=== PATIENT | female | born 1945 | race Caucasian/White ===

== ENCOUNTER 2019-03-13 19:07 | Emergency (ER) | payer MEDICARE ==
[~2019-03-13] VITALS: Ht 162.6 cm; Wt 72.6 kg
--- OUTSIDE RECORDS SUMMARY | 2019-03-13 19:10 | XMS REPORT | Clinical Summary ---
Author Author NADJA angelcam Organization [facility] threadsy PeekYou [facility] Address Unknown Phone Unavailable Care Team Providers Care Application Technical Designer Name Role Phone Tabatha Echeverria MD PCP Allergies Comments Active Allergy Reactions Severity Noted Date Latex Hives, Rash Low 11/12/2016 Medications End Date Status Medication Sig Dispensed Refills Start Date Active apixaban (ELIQUIS) 5 mg Take 5 mg by 0 Tab tablet mouth 2 (two) times daily. Active flecainide (TAMBOCOR) 150 Take 150 mg 0 MG tablet by mouth 2 (two) times daily. Active metoprolol (TOPROL-XL) 50 Take 50 mg by 0 MG 24 hr tablet mouth daily. Active losartan (COZAAR) 25 MG Take 25 mg by 0 tablet mouth daily. Active glimepiride (AMARYL) 1 MG Take 1 mg by 0 tablet mouth every morning before breakfast. Active furosemide (LASIX) 40 MG Take 40 mg by 0 tablet mouth daily. Active potassium chloride SA Take 10 mEq 0 (K-DUR,KLOR-CON) 10 MEQ by mouth tablet daily. Active pravastatin (PRAVACHOL) Take 10 mg by 0 10 MG tablet mouth daily. Active montelukast (SINGULAIR) Take 10 mg by 0 10 mg tablet mouth nightly. Active fluticasone-salmeterol Inhale 1 puff 0 (ADVAIR) 500-50 mcg/dose by mouth via diskus inhaler inhaler 2 (two) times daily. Active tiotropium (SPIRIVA) 18 Inhale 18 mcg 0 mcg inhalation capsule by mouth via inhaler daily. Active ranitidine (ZANTAC) 150 Take 150 mg 0 MG tablet by mouth daily. Active lactobacillus rhamnosus, Take 1 0 GG, (CULTURELLE) 10 capsule by billion cell capsule mouth daily. Active glucosamine-chondroitin Take 1 tablet 0 500-400 mg tablet by mouth daily Move free . Active cholecalciferol, vitamin Take 1,000 0 D3, 1,000 unit capsule Units by mouth daily. Active albuterol HFA (VENTOLIN Inhale 1 puff 0 HFA) 90 mcg/actuation by mouth via inhaler inhaler every 6 (six) hours as needed for Wheezing. Active Problems Problem Noted Date Atrial fibrillation 11/19/2017 Social History Date Tobacco Use Types Packs/Day Years Used Never Smoker Smokeless Tobacco: Never Used Alcohol Use Drinks/Week oz/Week Comments Yes Sex Assigned at Date Recorded Not on file Industry Job Start Date Occupation Not on file Not on file Not on file Travel End Travel History Travel Start No recent travel history available. Last Filed Vital Signs Not on file Plan of Treatment Not on file Results Not on fileafter 03/12/2018 Insurance Payer Benefit Subscriber ID Type Phone Address Plan / Group [employer] xxxxxxxxxxx MEDICARE ADV Advance Directives For more information, please contact: [facility] [address] [place] [address] Date Inactivated Comments Code Status Date Activated 11/20/2017 1:46 PM Full Code 11/19/2017 8:10 AM This code status was determined by: Patient 11/19/2017 4:30 AM Full Code 11/18/2017 1:41 PM This code status was determined by: Patient
--- OUTSIDE RECORDS SUMMARY | 2019-03-13 19:10 | XMS REPORT ---
Author Author [facility] Address Unknown Phone Unavailable Care Team Providers Care Clinical Laboratory Director Name Role Phone GT JONES Unavailable Unavailable Problems This patient has no known problems. Allergies, Adverse Reactions, Alerts This patient has no known allergies or adverse reactions. Medications This patient has no known medications. Results Test Description Test Time Test Comments Text Results Atomic Results Result Comments POCT-ACT 2017-11-19 15:43:00 ACTIVATED CLOTTING TIME (BEAKER) (test evtj=357) 114 sec TESTED AT [place] [address] [id number] 14:37:00* Test Item Value Reference Range Comments ACTIVATED CLOTTING TIME (BEAKER) (test vltq=731) 312 sec TESTED AT [place] [address] [id number] 14:19:00* Test Item Value Reference Range Comments ACTIVATED CLOTTING TIME (BEAKER) (test yupj=777) 334 sec TESTED AT [place] [address] [id number] 14:19:00* Test Item Value Reference Range Comments ACTIVATED CLOTTING TIME (BEAKER) (test ewwr=099) 285 sec TESTED AT [place] [address] [id number] 14:19:00* Test Item Value Reference Range Comments ACTIVATED CLOTTING TIME (BEAKER) (test nxiw=784) 307 sec TESTED AT [place] [address] BASIC METABOLIC [id number] 12:09:00* Test Item Value Reference Range Comments SODIUM (BEAKER) (test zoui=701) 141 meq/L 136-145 POTASSIUM (BEAKER) (test rkzs=879) 4.2 meq/L 3.5-5.1 CHLORIDE (BEAKER) (test mymw=908) 103 meq/L 98-107 CO2 (BEAKER) (test icwu=309) 28 meq/L 22-29 BLOOD UREA NITROGEN (BEAKER) (test fgcv=628) 18 mg/dL 7-21 CREATININE (BEAKER) (test qzaa=007) 0.90 mg/dL 0.57-1.25 GLUCOSE RANDOM (BEAKER) (test iqlq=829) 151 mg/dL 70-105 CALCIUM (BEAKER) (test jfwo=514) 9.2 mg/dL 8.4-10.2 EGFR (BEAKER) (test ceoy=4877) 62 mL/min/1.73 sq m ESTIMATED GFR IS NOT ACCURATE CREATININE CLEARANCE IN PREDICTING GLOMERULAR FILTRATION RATE. ESTIMATED GFR IS NOT APPLICABLE FOR DIALYSIS PATIENTS. [id number] 12:09:00* Test Item Value Reference Range Comments MAGNESIUM (BEAKER) (test tcew=538) 1.5 mg/dL 1.6-2.6 PROTHROMBIN TIME/[id number] 09:08:00* Test Item Value Reference Range Comments PROTIME (BEAKER) (test vrjy=119) 13.8 seconds 11.7-14.7 INR (BEAKER) (test kuoi=649) 1.1 <=5.9 RECOMMENDED COUMADIN/WARFARIN INR THERAPY RANGESSTANDARD DOSE: 2.0 - 3.0 Inclu humza: PROPHYLAXIS for venous thrombosis, systemic embolization; TREATMENT for neela ous thrombosis and/or pulmonary embolus.HIGH RISK: Target INR is 2.5-3.5 for pat ients with mechanical heart valves.Within 24 hours, if on CoumadinCBC W/PLT COUNT & AUTO [id number] 08:50:00* Test Item Value Reference Range Comments WHITE BLOOD CELL COUNT (BEAKER) (test dvrq=172) 6.8 K/ L 3.5-10.5 RED BLOOD CELL COUNT (BEAKER) (test uufs=723) 4.16 M/ L 3.93-5.22 HEMOGLOBIN (BEAKER) (test uimb=474) 13.1 GM/DL 11.2-15.7 HEMATOCRIT (BEAKER) (test seij=385) 39.2 % 34.1-44.9 MEAN CORPUSCULAR VOLUME (BEAKER) (test fspf=584) 94.2 fL 79.4-94.8 MEAN CORPUSCULAR HEMOGLOBIN (BEAKER) (test vkrm=344) 31.5 pg 25.6-32.2 MEAN CORPUSCULAR HEMOGLOBIN CONC (BEAKER) (test epps=956) 33.4 GM/DL 32.2-35.5 RED CELL DISTRIBUTION WIDTH (BEAKER) (test vnqj=469) 12.3 % 11.7-14.4 PLATELET COUNT (BEAKER) (test jada=776) 208 K/CU MM 150-450 MEAN PLATELET VOLUME (BEAKER) (test fkbs=531) 11.2 fL 9.4-12.3 NUCLEATED RED BLOOD CELLS (BEAKER) (test eqlt=124) 0 /100 WBC 0-0 NEUTROPHILS RELATIVE PERCENT (BEAKER) (test parz=758) 66 % LYMPHOCYTES RELATIVE PERCENT (BEAKER) (test izsr=270) 23 % MONOCYTES RELATIVE PERCENT (BEAKER) (test ifuo=328) 8 % EOSINOPHILS RELATIVE PERCENT (BEAKER) (test vlyy=267) 3 % BASOPHILS RELATIVE PERCENT (BEAKER) (test sotp=353) 0 % NEUTROPHILS ABSOLUTE COUNT (BEAKER) (test blrk=673) 4.50 K/ L 1.56-6.13 LYMPHOCYTES ABSOLUTE COUNT (BEAKER) (test lnrr=894) 1.54 K/ L 1.18-3.74 MONOCYTES ABSOLUTE COUNT (BEAKER) (test zqpo=718) 0.53 K/ L 0.24-0.36 EOSINOPHILS ABSOLUTE COUNT (BEAKER) (test vjct=859) 0.21 K/ L 0.04-0.36 BASOPHILS ABSOLUTE COUNT (BEAKER) (test jahn=625) 0.03 K/ L 0.01-0.08 IMMATURE GRANULOCYTES-RELATIVE PERCENT (BEAKER) (test jlne=2325) 0 % 0-1 [id number] 13:13:00* Test Item Value Reference Range Comments SODIUM (BEAKER) (test jcjv=081) 140 meq/L 136-145 POTASSIUM (BEAKER) (test zyfj=998) 4.4 meq/L 3.5-5.1 CHLORIDE (BEAKER) (test cesy=199) 98 meq/L 98-107 CO2 (BEAKER) (test dkot=789) 32 meq/L 22-29 BUN AND [id number] 13:13:00* Test Item Value Reference Range Comments BLOOD UREA NITROGEN (BEAKER) (test waqf=563) 20 mg/dL 7-21 CREATININE (BEAKER) (test blqh=616) 1.12 mg/dL 0.57-1.25 EGFR (BEAKER) (test npow=8286) 48 mL/min/1.73 sq m ESTIMATED GFR IS NOT ACCURATE CREATININE CLEARANCE IN PREDICTING GLOMERULAR FILTRATION RATE. ESTIMATED GFR IS NOT APPLICABLE FOR DIALYSIS PATIENTS. [id number] 12:54:00* Test Item Value Reference Range Comments PARTIAL THROMBOPLASTIN TIME (BEAKER) (test shvf=036) 33.3 seconds 22.5-36.0 PROTHROMBIN TIME/[id number] 12:53:00* Test Item Value Reference Range Comments PROTIME (BEAKER) (test cnai=161) 15.6 seconds 11.7-14.7 INR (BEAKER) (test sexy=487) 1.2 <=5.9 RECOMMENDED COUMADIN/WARFARIN INR THERAPY RANGESSTANDARD DOSE: 2.0 - 3.0 Inclu humza: PROPHYLAXIS for venous thrombosis, systemic embolization; TREATMENT for neela ous thrombosis and/or pulmonary embolus.HIGH RISK: Target INR is 2.5-3.5 for pat ients with mechanical heart valves.CBC W/PLT COUNT & AUTO [id number] 12:46:00* Test Item Value Reference Range Comments WHITE BLOOD CELL COUNT (BEAKER) (test vwqz=904) 7.8 K/ L 3.5-10.5 RED BLOOD CELL COUNT (BEAKER) (test qbrj=771) 4.11 M/ L 3.93-5.22 HEMOGLOBIN (BEAKER) (test zind=228) 12.8 GM/DL 11.2-15.7 HEMATOCRIT (BEAKER) (test byqz=691) 39.5 % 34.1-44.9 MEAN CORPUSCULAR VOLUME (BEAKER) (test bbhv=294) 96.1 fL 79.4-94.8 MEAN CORPUSCULAR HEMOGLOBIN (BEAKER) (test cunr=001) 31.1 pg 25.6-32.2 MEAN CORPUSCULAR HEMOGLOBIN CONC (BEAKER) (test vbuo=884) 32.4 GM/DL 32.2-35.5 RED CELL DISTRIBUTION WIDTH (BEAKER) (test miez=835) 12.4 % 11.7-14.4 PLATELET COUNT (BEAKER) (test nptj=693) 207 K/CU MM 150-450 MEAN PLATELET VOLUME (BEAKER) (test uxrt=689) 11.1 fL 9.4-12.3 NUCLEATED RED BLOOD CELLS (BEAKER) (test rzzv=228) 0 /100 WBC 0-0 NEUTROPHILS RELATIVE PERCENT (BEAKER) (test jobf=885) 57 % LYMPHOCYTES RELATIVE PERCENT (BEAKER) (test eafz=533) 31 % MONOCYTES RELATIVE PERCENT (BEAKER) (test cqdl=111) 7 % EOSINOPHILS RELATIVE PERCENT (BEAKER) (test lmcz=952) 4 % BASOPHILS RELATIVE PERCENT (BEAKER) (test umrf=665) 1 % NEUTROPHILS ABSOLUTE COUNT (BEAKER) (test xabx=083) 4.49 K/ L 1.56-6.13 LYMPHOCYTES ABSOLUTE COUNT (BEAKER) (test zrim=038) 2.42 K/ L 1.18-3.74 MONOCYTES ABSOLUTE COUNT (BEAKER) (test ygzr=957) 0.57 K/ L 0.24-0.36 EOSINOPHILS ABSOLUTE COUNT (BEAKER) (test jgze=239) 0.29 K/ L 0.04-0.36 BASOPHILS ABSOLUTE COUNT (BEAKER) (test kixm=359) 0.05 K/ L 0.01-0.08 IMMATURE GRANULOCYTES-RELATIVE PERCENT (BEAKER) (test ytbh=1984) 0 % 0-1 CT, HEART, [id number] 17:17:00Reason for Exam:->SOBReason for Exam:->Afib Addendum BeginsREPORT STATUS:A Addendum: I agree with th e previously described non vascular findings. Signed: Kenneth Richards MDReport Verif ied Date/Time: 10/18/2017 17:17:38 Reading Location: [place] [id number] Angio Body Nessa jimmy RoomAddendum EndsFINAL REPORT CT angiography of the pulmonary veins, 18 October 2017 INDICATION: This is a 72 years old female with history of atrial fibrillation presented here for pulmonary vein ostial map ping. This study is performed in an attempt to avoid invasive procedure. TECHNIQ UE: Spiral acquisition during intravenous contrast administration using a [employer] PS multislice cardiac CT scanner without prospective ECG triggering. Multiplana r reconstructions were performed interactively by the interpreting physician raghav ng an independent ([employer]) workstation. Please refer to the contrast sheet scann ed in the [employer] system for the amount and route of contrast given. This exam was performed according to our departmental dose-optimisation programme, which inclu humza automated exposure control, adjustment of the mA and/or kV according to bea ent size and/or use of iterative reconstruction technique. Dose modulation, iter ative reconstruction, and/or weight based adjustment of the mA/kV was utilized t o reduce the radiation dose to as low as reasonably achievable. FINDINGS: VASCU LAR: The pericardium appears normal. The central pulmonary artery is at the upp er limits of normal in calibre. There is no evidence of central pulmonary artery embolism identified. The thoracic aorta is normal in course, calibre, and conto ur. Calcific and noncalcific atherosclerosis is seen in the descending thoracic aorta. No ectasia or aneurysmal dilation is seen. There is no evidence for acute aortic pathology. The arch vessel branching pattern is normal, and the origins of the arch branch vessels are all widely patent. The cardiac chambers demonstra te normal atrioventricular and ventriculoarterial concordance, and systemic and pulmonary venous return. The left ventricle is normal in size, and no abnormal m asses are identified. The coronary artery origins are normal. Scattered cross ry artery calcification is present for example in the LAD territory. Mild left a nd right atrial enlargement is seen. No thrombus is visualized in the left atria l appendage. Pulmonary vein morphology is normal with pairs of pulmonary veins o n each side of the left atrium. There is no evidence for pulmonary vein stenosis . Quantitative pulmonary vein ostial mapping (measured utilizing MPR analysis) i s as follows: Pulmonary vein Major axis Minor axis Cross-sectional ar ea Right upper 18 mm 17 mm 2.3 [id number] lower 19 mm 16 mm 2.2 ji0Wfcj upper 16 mm 12 mm 1.3 oz6Vxrl lower 17 mm 14 mm 1.8 cm2 NON-VASCULAR: The visualised thyroid gland appears unremar kable. The chest wall and mediastinum appears normal. No significant adenopathy is seen except for some small lymph nodes, considered nonspecific in nature. CT is not optimised in the assessment of breast structures. Surgical clips are seen in the left breast area indicating prior mastectomy. Correlate with clinical hi story. In the lung windows, no obvious endobronchial lesion is seen and no pleur al effusion is identified. In the lung windows, no obvious endobronchial lesion is seen and no pleural effusions identified. Some subsegmental atelectatic blankenship es are seen. Overall, no suspicious pulmonary nodule is identified. The limited images of the upper abdomen reveal no significant abnormalities of the visualise d organs. Precontrast images were not obtained and pulmonary vein study, however , Hounsfield units is low after contrast administration suggesting a degree of f atty infiltration. No acute bony pathology is seen. Some degenerative changes is noted. IMPRESSIONS: 1. The left atrium is enlarged. No thrombus is visualized in the left atrial appendage. 2. Pulmonary vein morphology is normal with pa irs of pulmonary veins bilaterally. There is no evidence for pulmonary vein miguel a nosis. Quantitative pulmonary vein ostial mapping is as noted above. 3. Normal thoracic aorta. Scattered calcific and noncalcific atherosclerosis is seen. 4. No acute pulmonary pathology. 5. Other findings as described above. Hepatic st eatosis. 6. An addendum will be dictated regarding the non-vascular findings by the Paint Preparer Radiologist. Signed: Tanner Andrewseport Verified Date/Rafa e: 10/18/2017 12:56:17 Reading Location: [place] [id number] Cardiology MRI Electr onically signed by: KENNETH RICHARDS M.D. on 10/18/2017 05:17 PM ELECTROLYTES 2017-10-18 10:17:00* Test Item Value Reference Range Comments SODIUM (BEAKER) (test krrg=776) 141 meq/L 136-145 POTASSIUM (BEAKER) (test otze=316) 4.3 meq/L 3.5-5.1 CHLORIDE (BEAKER) (test znkh=883) 100 meq/L 98-107 CO2 (BEAKER) (test lvre=312) 31 meq/L 22-29 BUN AND [id number] 10:17:00* Test Item Value Reference Range Comments BLOOD UREA NITROGEN (BEAKER) (test wdjz=143) 24 mg/dL 7-21 CREATININE (BEAKER) (test cwqd=864) 1.14 mg/dL 0.57-1.25 EGFR (BEAKER) (test vygi=3218) 47 mL/min/1.73 sq m ESTIMATED GFR IS NOT ACCURATE CREATININE CLEARANCE IN PREDICTING GLOMERULAR FILTRATION RATE. ESTIMATED GFR IS NOT APPLICABLE FOR DIALYSIS PATIENTS. PT/[id number] 10:04:00* Test Item Value Reference Range Comments PROTIME (BEAKER) (test jeah=392) 14.9 seconds 11.7-14.7 INR (BEAKER) (test htvw=631) 1.2 <=5.9 PARTIAL THROMBOPLASTIN TIME (BEAKER) (test tvnb=839) 31.5 seconds 22.5-36.0 RECOMMENDED COUMADIN/WARFARIN INR THERAPY RANGESSTANDARD DOSE: 2.0 - 3.0 Inclu humza: PROPHYLAXIS for venous thrombosis, systemic embolization; TREATMENT for neela ous thrombosis and/or pulmonary embolus.HIGH RISK: Target INR is 2.5-3.5 for pat ients with mechanical heart valves.PROTHROMBIN TIME/[id number] 10:03:00* Test Item Value Reference Range Comments PROTIME (BEAKER) (test pimy=027) 14.9 seconds 11.7-14.7 INR (BEAKER) (test royn=099) 1.2 <=5.9 RECOMMENDED COUMADIN/WARFARIN INR THERAPY RANGESSTANDARD DOSE: 2.0 - 3.0 Inclu humza: PROPHYLAXIS for venous thrombosis, systemic embolization; TREATMENT for neela ous thrombosis and/or pulmonary embolus.HIGH RISK: Target INR is 2.5-3.5 for pat ients with mechanical heart valves.CBC (HEMOGRAM ONLY)2017-10-18 09:56:00* Test Item Value Reference Range Comments WHITE BLOOD CELL COUNT (BEAKER) (test smfy=915) 12.5 K/ L 3.5-10.5 RED BLOOD CELL COUNT (BEAKER) (test dwln=913) 4.10 M/ L 3.93-5.22 HEMOGLOBIN (BEAKER) (test utnt=577) 12.7 GM/DL 11.2-15.7 HEMATOCRIT (BEAKER) (test isvs=973) 39.5 % 34.1-44.9 MEAN CORPUSCULAR VOLUME (BEAKER) (test tniv=978) 96.3 fL 79.4-94.8 MEAN CORPUSCULAR HEMOGLOBIN (BEAKER) (test ifyy=714) 31.0 pg 25.6-32.2 MEAN CORPUSCULAR HEMOGLOBIN CONC (BEAKER) (test psot=682) 32.2 GM/DL 32.2-35.5 RED CELL DISTRIBUTION WIDTH (BEAKER) (test egjt=082) 12.9 % 11.7-14.4 PLATELET COUNT (BEAKER) (test oyfo=327) 207 K/CU MM 150-450 MEAN PLATELET VOLUME (BEAKER) (test robz=811) 11.3 fL 9.4-12.3 NUCLEATED RED BLOOD CELLS (BEAKER) (test ddlm=024) 0 /100 WBC 0-0
[2019-03-13 20:32] LABS: STREPTOCOCCUS GRP A ANTIGEN NEGATIVE (NEGATIVE)
--- NOTE | 2019-03-13 20:38 | Diagnostic Imaging Report ---
EXAMINATION: CHEST 2 VIEWS INDICATION: ^COUGH, CONGESTION, SORE THROAT COMPARISON: None FINDINGS: AP view TUBES and LINES: None. LUNGS/PLEURA: The lungs are clear. No pleural effusion or pneumothorax. HEART AND MEDIASTINUM: The cardiomediastinal silhouette is unremarkable. BONES AND SOFT TISSUES: No acute osseous lesion. Surgical clips in the left axilla and overlying the left lung UPPER ABDOMEN: No free air under the diaphragm. IMPRESSION: No acute thoracic abnormality. Signed by: Pb Gimenez MD on 03/13/2019 8:35 PM
[2019-03-13 20:42] LABS: INFLUENZAE A&B ANTIGEN (RAPID) NEGATIVE (NEGATIVE)
[2019-03-13] MEDS ORDERED: CEFTRIAXONE SOD 1 GM VIAL IM ONE (22:15)
[2019-03-13] MEDS ORDERED: LIDOCAINE HCL 1% LOCAL INJ 20 ML VIAL INJ ONE (22:15)
[2019-03-13] MEDS ORDERED: PREDNISONE 20 MG TAB PO ONE (22:30)
== END 2019-03-13 22:45 | disposition home or self-care (01) ==
LOC: ER 19:07
DX: R05 Cough (principal); J20.9 Acute bronchitis, unspecified; J02.9 Acute pharyngitis, unspecified; J44.1 Chronic obstructive pulmonary disease with (acute) exacerbation; I10 Essential (primary) hypertension; I50.9 Heart failure, unspecified
CPT/HCPCS: 71046; 83518; 87070; 87400; 99284

== ENCOUNTER 2020-05-14 18:32 | Inpatient (IN) | payer MEDICARE, OTHER ==
[~2020-05-14] VITALS: Ht 162.6 cm; Wt 79.8 kg
--- NOTE | 2020-05-14 18:42 | Emergency Department Note ---
History of Present Illnes History of Present Illness Chief Complaint: Chest Pain History of Present Illness This is a 75 year old female with substernal CP which radiates to b/l Arms . (+) SOB. Neg N/V . Historian: Patient Arrival Mode: Car Kitchen And Bath Designer Required: No Onset (how long ago): hour(s) Location: substernal Radiation: Reports non-radiation Onset quality: sudden Duration (how long): hour(s) Timing of current episode: constant Progression: worsening Chronicity: new Relieving factors: none Exacerbating factors: none Associated symptoms: Reports chest pain, Reports shortness of breath Treatments prior to arrival: none Past Medical/Family History Physician Review I have reviewed the patient's past medical and family history. Any updates have been documented here. Past Medical History Recent Fever: No Clinical Suspicion of Infectio: No New/Unexplained Change in Ment: No Past Medical History: Hypertension, COPD, CHF, A-Fib Other Medical History: ABLATION Social History Smoking Cessation: Never Smoker Alcohol Use: None Any Illegal Drug Use: No Other Last Tetanus: UTD Review of Systems Review of Systems Constitutional: Reports no symptoms EENTM: Reports no symptoms Cardiovascular: Reports chest pain Respiratory: Reports dyspnea Gastrointestinal: Reports no symptoms Genitourinary: Reports no symptoms Musculoskeletal: Reports no symptoms Integumentary: Reports no symptoms Neurological: Reports no symptoms Psychological: Reports no symptoms Endocrine: Reports no symptoms Hematological/Lymphatic: Reports no symptoms Physical Exam Related Data Allergies: Coded Allergies: latex (Verified Allergy, Intermediate, 03/13/19) Triage Vital Signs Vital Signs Date Time Temp Pulse Resp B/P (MAP) Pulse Ox O2 Delivery O2 Flow Rate FiO2 05/14/20 18:35 98.1 65 20 152/61 98 Room Air 05/14/20 20:55 2.5 Vital signs reviewed: Yes Physical Exam CONSTITUTIONAL Constitutional: Present obese HENT HENT: Present normocephalic, Present atraumatic, Present oropharynx clear/moist, Present nose normal HENT L/R: Present left ext ear normal, Present right ext ear normal EYES Eyes: Reports PERRL, Reports conjunctivae normal NECK Neck: Present ROM normal PULMONARY Pulmonary: Present effort normal, Present breath sounds normal CARDIOVASCULAR Cardiovascular: Present LLE edema, Present RLE edema GASTROINTESTINAL Abdominal: Present soft, Present nontender, Present bowel sounds normal GENITOURINARY Genitourinary: Present exam deferred SKIN Skin: Present warm, Present dry MUSCULOSKELETAL Musculoskeletal: Present ROM normal NEUROLOGICAL Neurological: Present alert, Present oriented x 3, Present no gross motor or sensory deficits PSYCHOLOGICAL Psychological: Present mood/affect normal, Present judgement normal Results Laboratory Lab results reviewed: Yes Laboratory comments Laboratory Tests Test 05/14/20 18:45 White Blood Count 8.99 x10e3/uL (4.8-10.8) Red Blood Count 4.25 x10e6/uL (3.6-5.1) Hemoglobin 13.4 g/dL (12.0-16.0) Hematocrit 39.7 % (34.2-44.1) Mean Corpuscular Volume 93.4 fL (81-99) Mean Corpuscular Hemoglobin 31.5 pg (28-32) Mean Corpuscular Hemoglobin Concent 33.8 g/dL (31-35) Red Cell Distribution Width 12.7 % (11.7-14.4) Platelet Count 206 x10e3/uL (140-360) Neutrophils (%) (Auto) 48.6 % (38.7-80.0) Lymphocytes (%) (Auto) 38.8 % (18.0-39.1) Monocytes (%) (Auto) 9.6 % (4.4-11.3) Eosinophils (%) (Auto) 2.2 % (0.0-6.0) Basophils (%) (Auto) 0.6 % (0.0-1.0) Neutrophils # (Auto) 4.4 (2.1-6.9) Lymphocytes # (Auto) 3.5 (1.0-3.2) Monocytes # (Auto) 0.9 (0.2-0.8) Eosinophils # (Auto) 0.2 (0.0-0.4) Basophils # (Auto) 0.1 (0.0-0.1) Absolute Immature Granulocyte (auto 0.02 x10e3/uL (0-0.1) D-Dimer Quantitative (PE/DVT) < 100 ng/mL (0-400) Sodium Level 138 mmol/L (136-145) Potassium Level 4.2 mmol/L (3.5-5.1) Chloride Level 97 mmol/L (98-107) Carbon Dioxide Level 27 mmol/L (22-29) Anion Gap 18.2 mmol/L (8-16) Blood Urea Nitrogen 11 mg/dL (7-26) Creatinine 0.94 mg/dL (0.57-1.11) Estimat Glomerular Filtration Rate 58 ML/MIN (60-) BUN/Creatinine Ratio 12 (6-25) Glucose Level 129 mg/dL (74-118) Calcium Level 9.3 mg/dL (8.4-10.2) Total Bilirubin 0.5 mg/dL (0.2-1.2) Aspartate Amino Transf (AST/SGOT) 24 IU/L (5-34) Alanine Aminotransferase (ALT/SGPT) 29 IU/L (0-55) Alkaline Phosphatase 76 IU/L (40-150) Creatine Kinase 35 IU/L (29-168) Creatine Kinase MB 1.20 ng/mL (0-5.0) Troponin I 0.015 ng/mL (0-0.300) B-Type Natriuretic Peptide 135.6 pg/mL (0-100) Total Protein 7.1 g/dL (6.5-8.1) Albumin 3.9 g/dL (3.5-5.0) Globulin 3.2 g/dL (2.3-3.5) Albumin/Globulin Ratio 1.2 (0.8-2.0) Imaging Imaging results reviewed: Yes Impressions [place] [address] Patient Name: KELSEA WINSTON MR #: [id number] : 1945 Age/Sex: 75/F Req #: [id number] Adm Physician: Ordered by: RAQUEL BARDALES DO Report #: [id number] Location: ER Room/Bed: Procedure: [id number] DX/CHEST SINGLE (PORTABLE) Exam Date: 05/14/20 Exam Time: 1854 REPORT STATUS: Signed EXAMINATION: CHEST SINGLE (PORTABLE) INDICATION: Chest pain. COMPARISON: Chest x-ray on 03/13/2019. FINDINGS: TUBES and LINES: None. LUNGS: There is hazy opacification of bilateral lung bases and prominent interstitial lung markings. PLEURA: No pleural effusion or pneumothorax. HEART AND MEDIASTINUM: The heart is mildly enlarged. Mediastinal contours otherwise unchanged. BONES AND SOFT TISSUES: No acute osseous lesion. Soft tissues are unremarkable. UPPER ABDOMEN: No free air under the diaphragm. IMPRESSION: 1. Cardiomegaly with prominent interstitial lung markings which likely represents pulmonary edema. 2. Hazy opacification of the bilateral lung bases may represent atelectasis and/or pneumonia. Follow-up to resolution. Signed by: Baldo Mariano MD on 05/14/2020 8:30 PM Dictated By: BALDO MARIANO MD 29 Transcribed By: TAN on 05/14/202029 COPY TO: RAQUEL BARDALES DO~ Procedures 12 Lead ECG Interpretation ECG Interpretation : ECG: ECG 1 Kitchen And Bath Designer: Interpreted by ED physician Date: May 14, 2020 Time: 18:41 Prior ECG tracings: reviewed Rhythm: sinus rhythm Rate: normal QRS axis: normal ST segments normal: Yes T waves normal: Yes Q waves: V1, V2 Assessment & Plan Medical Decision Making MDM 75 yof presents with CP. CMP, CBC, EKG, and cardiac enzymes ordered for consideration of ACS, PE, costocondritis, Chest wall pain, and pneumothorax considered. labs, imaging and EKG reviewed . Plan to admit for observation Assessment & Plan Final Impression: (1) Chest pain Depart Disposition: ADMITTED Home Meds Reported Medications Metoprolol Succinate (METOPROLOL SUCCINATE) 50 Mg Tab.er.24h, 1 TAB PO DAILY 05/14/20 Losartan Potassium (COZAAR) 25 Mg Tablet, 1 TAB PO DAILY 05/14/20 Furosemide (FUROSEMIDE) 40 Mg Tablet, 40 MG PO DAILY 05/14/20 Rosuvastatin Calcium (Rosuvastatin Calcium) 5 Mg Tablet, 5 MG PO HS 05/14/20 Apixaban (Eliquis) 5 Mg Tablet, 5 MG PO BID 05/14/20 RAQUEL BARDALES DO May 14, 2020 18:42
[2020-05-14] MEDS ORDERED: MORPHINE SULFATE INJ 4 MG/ML INJ 1ML IV STA ×2 (18:44→20:18)
[2020-05-14] MEDS ORDERED: ASPIRIN 81 MG CHEW TAB PO ONE ×2 (18:45→20:30)
[2020-05-14] MEDS ORDERED: ONDANSETRON HCL INJ 2MG/ML 2ML 2 MG/ML VIAL IV STA ×2 (19:02→20:18)
[2020-05-14 19:08] LABS: BASOPHILS # (AUTO) 0.1 (0.0-0.1); BASOPHILS % 0.6 % (0.0-1.0); EOSINOPHILS # (AUTO) 0.2 (0.0-0.4); EOSINOPHILS % 2.2 % (0.0-6.0); HEMATOCRIT 39.7 % (34.2-44.1); HEMOGLOBIN 13.4 g/dL (12.0-16.0); LYMPHOCYTES # (AUTO) 3.5 (1.0-3.2); LYMPHOCYTES % 38.8 % (18.0-39.1); MEAN CORPUSCULAR HEMOGLOBIN 31.5 pg (28-32); MEAN CORPUSCULAR HGB CONC 33.8 g/dL (31-35); MEAN CORPUSCULAR VOLUME 93.4 fL (81-99); MONOCYTES # (AUTO) 0.9 (0.2-0.8); MONOCYTES % 9.6 % (4.4-11.3); NEUTROPHILS # (AUTO) 4.4 (2.1-6.9); NEUTROPHILS % 48.6 % (38.7-80.0); PLATELET COUNT 206 x10e3/uL (140-360); RED BLOOD COUNT 4.25 x10e6/uL (3.6-5.1); RED CELL DISTRIBUTION WIDTH 12.7 % (11.7-14.4)
[2020-05-14 19:25] LABS: ALBUMIN 3.9 g/dL (3.5-5.0); ALBUMIN/GLOBULIN RATIO 1.2 (0.8-2.0); ANION GAP 18.2 mmol/L (8-16); CALCIUM 9.3 mg/dL (8.4-10.2); CREATININE, SERUM 0.94 mg/dL (0.57-1.11); POTASSIUM 4.2 mmol/L (3.5-5.1)
[2020-05-14 19:32] LABS: CREATINE KINASE MB 1.2 ng/mL (0-5.0)
[2020-05-14] MEDS ORDERED: MORPHINE SULFATE INJ 4 MG/ML INJ 1ML ONE (20:27)
[2020-05-14] MEDS ORDERED: ONDANSETRON HCL INJ 2MG/ML 2ML 2 MG/ML VIAL ONE (20:27)
[2020-05-14] MEDS ORDERED: MORPHINE SULFATE 2 MG/ML SYR 1ML IV PRN (20:30)
--- NOTE | 2020-05-14 20:33 | Diagnostic Imaging Report ---
EXAMINATION: CHEST SINGLE (PORTABLE) INDICATION: Chest pain. COMPARISON: Chest x-ray on 03/13/2019. FINDINGS: TUBES and LINES: None. LUNGS: There is hazy opacification of bilateral lung bases and prominent interstitial lung markings. PLEURA: No pleural effusion or pneumothorax. HEART AND MEDIASTINUM: The heart is mildly enlarged. Mediastinal contours otherwise unchanged. BONES AND SOFT TISSUES: No acute osseous lesion. Soft tissues are unremarkable. UPPER ABDOMEN: No free air under the diaphragm. IMPRESSION: 1. Cardiomegaly with prominent interstitial lung markings which likely represents pulmonary edema. 2. Hazy opacification of the bilateral lung bases may represent atelectasis and/or pneumonia. Follow-up to resolution. Signed by: Jesus Ratliff MD on 05/14/2020 8:30 PM
[2020-05-14] MEDS ORDERED: ROSUVASTATIN CAL5 MG PO (20:59)
[2020-05-14] MEDS ORDERED: FUROSEMIDE40 MG PO (20:59)
[2020-05-14] MEDS ORDERED: ELIQUIS5 MG PO (20:59)
[2020-05-14] MEDS ORDERED: COZAAR25 MG PO (20:59)
[2020-05-14] MEDS ORDERED: METOPROLOL SUCC50 MG PO (20:59)
--- NOTE | 2020-05-14 23:30 | NUR ---
RECEIVED PATIENT FROM ED AT THIS TIME VIA WHEELCHAIR. PATIENT AMBULATED TO BED, STEADY GAIT NOTED. PATIENT REPORTS SOB WITH EXERTION, INCREASED OXYGEN, CALLED RT FOR EXTENSION TUBING. PATIENT IS A&OX3. L LIMB ALERT BAND ON, LATEX ALLERGY BAND APPLIED. R FA 20G ASYMPTOMATIC, INTACT, AND PATENT. CHEST PAIN 4/10 REPORTED. +2 PITTING EDEMA NOTED TO BLE. SKIN INTACT. TELE MONITOR #[id number] [address]. LUNG SOUNDS CLEAR. BOWEL SOUNDS ACTIVE. ORIENTED PATIENT TO ROOM AND PLAN OF CARE. ATTEMPTED TO TURN ON BED ALARM, BUT PATIENT REFUSES. WALKER PROVIDED AND PATIENT VERBALIZED SHE WOULD CALL IF SHE NEEDED ASSISTANCE GETTING OUT OF BED. NO CONCERNS EXPRESSED AT THIS TIME. BED LOCKED IN LOWEST POSITION, SIDE RAILS UPX2, CALL LIGHT IN REACH.
[2020-05-15] VITALS (10 sets, daily range): BP systolic 112–154; BP diastolic 51–122
[2020-05-15] MEDS: ONDANSETRON HCL INJ 2MG/ML 2ML 2 MG/ML VIAL IV PRN ×3 (00:55→16:52)
[2020-05-15] MEDS: MORPHINE SULFATE INJ 4 MG/ML INJ 1ML IV PRN ×3 (00:55→16:52)
[2020-05-15 03:36] LABS: BASOPHILS % 0.4 % (0.0-1.0); EOSINOPHILS # (AUTO) 0.1 (0.0-0.4); EOSINOPHILS % 0.8 % (0.0-6.0); HEMATOCRIT 40.2 % (34.2-44.1); HEMOGLOBIN 13.1 g/dL (12.0-16.0); LYMPHOCYTES # (AUTO) 1.8 (1.0-3.2); LYMPHOCYTES % 17.7 % (18.0-39.1); MEAN CORPUSCULAR HEMOGLOBIN 31.3 pg (28-32); MEAN CORPUSCULAR HGB CONC 32.6 g/dL (31-35); MEAN CORPUSCULAR VOLUME 95.9 fL (81-99); MONOCYTES # (AUTO) 0.7 (0.2-0.8); MONOCYTES % 6.3 % (4.4-11.3); NEUTROPHILS # (AUTO) 7.7 (2.1-6.9); NEUTROPHILS % 74.4 % (38.7-80.0); PLATELET COUNT 185 x10e3/uL (140-360); RED BLOOD COUNT 4.19 x10e6/uL (3.6-5.1); RED CELL DISTRIBUTION WIDTH 12.7 % (11.7-14.4)
[2020-05-15 03:58] LABS: CREATINE KINASE MB 4.6 ng/mL (0-5.0)
[2020-05-15 04:14] LABS: ALBUMIN 3.8 g/dL (3.5-5.0); ALBUMIN/GLOBULIN RATIO 1.2 (0.8-2.0); ANION GAP 13.3 mmol/L (8-16); CALCIUM 9.2 mg/dL (8.4-10.2); CREATININE, SERUM 1.35 mg/dL (0.57-1.11); POTASSIUM 5.3 mmol/L (3.5-5.1)
--- NOTE | 2020-05-15 06:25 | NUR ---
PAGED MD GODDARD CONCERNING CONSULT AT THIS TIME.
--- NOTE | 2020-05-15 07:00 | NUR ---
RCD PT AT BED PT IS ALERT AND ORIENTED PT RESTING ON BED IV PATENT BY SALINE FLUSH BED LOW AND LOCKED CALL LIGHT IN REACH
[2020-05-15] MEDS: ASPIRIN 81 MG CHEW TAB PO SCH (10:30)
[2020-05-15] MEDS: FUROSEMIDE INJ 10 MG/ML 4 ML VIAL IV SCH ×2 (10:35→16:52)
[2020-05-15] MEDS: ATORVASTATIN 40 MG TAB PO SCH (10:35)
[2020-05-15 11:40] LABS: CREATINE KINASE MB 5.8 ng/mL (0-5.0)
--- NOTE | 2020-05-15 13:13 | Consultation ---
DATE OF CONSULTATION: 05/15/2020 Cardiology Consultation REASON FOR CONSULTATION: Chest pain. CONSULTING PHYSICIAN: Valentino Benítez MD, Interventional Cardiology. HISTORY OF PRESENT ILLNESS: 75-year-old woman with history of COPD; heart failure, unspecified; and atrial fibrillation with history of ablation, presents with complaints of midsternal chest discomfort and dyspnea. Onset while at rest, lasting several hours, improving. She denies lightheadedness or palpitations at that time. Symptoms are currently minimal. D-dimer is negative. Troponin I 2nd set is mildly elevated at 0.84 and her BNP was 135, elevated. Her chest x-ray reveals pulmonary edema. REVIEW OF SYSTEMS: A 12-system review negative except for as noted above. ALLERGIES: LATEX. PAST MEDICAL HISTORY: As per HPI, COPD, atrial fibrillation, and chronic heart failure, unspecified. SOCIAL HISTORY: No smoking, alcohol, or drugs reported. FAMILY HISTORY: Noncontributory. PHYSICAL EXAMINATION: VITAL SIGNS: Temperature 97.6, heart rate 61, pressure 112/62, respiratory rate 16, and O2 saturation 100%. BMI 30. GENERAL: In no acute distress, alert. NECK: JVD, distended. CHEST: With scattered rales in the lower bases and decreased breath sounds. CARDIOVASCULAR: Regular rate and rhythm. Normal S1 and S2. No S3 or S4. Systolic ejection murmur 1/6. ABDOMEN: Soft. Bowel sounds positive. EXTREMITIES: Warm extremities, trace edema. CARDIOVASCULAR MEDICATIONS: Reviewed. Losartan, metoprolol, and Eliquis on hold last dose yesterday at a.m. LABORATORY DATA: Studies reviewed; sodium 136, potassium 5.3, chloride 98, bicarbonate 30, BUN 14, creatinine 1.35, and glucose 208. White blood cells 10, hemoglobin 13, and platelets 185. AST 21, ALT 28, alkaline phosphatase 72, and total bilirubin 0.4. ASSESSMENT AND PLAN: 1. 75-year-old woman presents with chest pain, abnormal troponin, and elevated BNP, concerning for non-STEMI. 2. Ybyum-nx-ejbumms heart failure, unspecified. 3. History of atrial fibrillation, status post ablation. 4. Chronic obstructive pulmonary disease. 5. Recommend given pulmonary edema on chest x-ray, initiate IV diuretics. Continue beta-baudilio and aspirin. Initiate Lovenox and monitor creatinine. Eliquis is on hold for now. Indications, alternatives, risks and benefits for left heart catheterization, coronary angiography and possible endovascular intervention has been discussed. Awaiting COVID-19 test. Follow closely. Keep on telemetry. MD LloydV/MODL /[id number] MTDD
--- NOTE | 2020-05-15 16:50 | NUR ---
PT C/O CHEST PAIN AND HEAD ACHE CHECKED BP 154/122 MM/HG ,HR 74/MT PAGED DR ROBLEDO NOTIFY THAT
[2020-05-15] MEDS ORDERED: METOPROLOL TARTRATE INJ 1 MG/ML VIAL IV ONE (17:00)
--- NOTE | 2020-05-15 17:01 | NUR ---
PAGED DR ROBLEDO AND NOTIFIED BP 154/122 MM/HG GOT NEW ORDERS
[2020-05-15] MEDS ORDERED: NITROGLYCERIN 0.4 MG SUBL SL PRN (17:15)
--- NOTE | 2020-05-15 18:42 | NUR ---
PT RESTING ON BED BED SIDE REPORT GIVEN TO ONCOMING NURSE
--- NOTE | 2020-05-15 19:20 | NUR ---
BEDSIDE SHIFT REPORT RECEIVED FROM DAY RN. PT ALERT AND ORIENTED X3. O2 AT 2 L PER N/C. TELE ON.HX LEFT MASTECTOMY- LIMB ALERT ON. SL RT FA- 20G. SITE HEALTHY. PT DENIES PAIN. PT RESTING IN SEMI-FOWLERS POSITION IN BED WATCHING TV. CALL LIGHT WITHIN REACH. BED LOCKED AND IN LOW POSITION.
[2020-05-15] MEDS ORDERED: ENOXAPARIN INJ 80 MG/0.8 ML SYR SC SCH (21:00)
[2020-05-15] MEDS ORDERED: HYDRALAZINE HCL 20 MG/ML VIAL IV PRN (23:45)
[2020-05-16] VITALS (11 sets, daily range): BP systolic 113–154; BP diastolic 53–84
[2020-05-16] MEDS ORDERED: SODIUM CHLORIDE 0.9% 1000ML 1,000 ML IV SCH
--- NOTE | 2020-05-16 01:16 | NUR ---
PT C/O OF CHEST PAIN AFTER WASH UP IN BATHROOM FOR CARDIAC CATH IN AM. VS STABLE.B/P 144/61 MAP 84 HR 82 O2 ON 3L PER N/C. O2 SAT 96%. TELE REPORT MONITOR SHOW SR 88 HR. NITRO GIVEN ORDERED FOR CHEST PAIN- PAIN RESOLVE. HOB ELEVATED .PT REPORT PAIN GONE. CONSENT FOR CARDIAC CATH SIGNED. PIV NS AT 75 ML/HR ON. PT NOW NPO.
--- NOTE | 2020-05-16 01:17 | History and Physical ---
PRIMARY CARE DOCTOR: Dr. Johnny Sanchez. CHIEF COMPLAINT: Chest pain. HISTORY OF PRESENT ILLNESS: This is a 75-year-old female came in with 24 hours of waxing and waning substernal chest pressure with radiation to both sides. The patient also has shortness of breath. The patient has never had anything like this in the past. With morphine, the pain will disappear, but will come back again. The patient has had atrial fibrillation ablation before, carries a diagnosis of COPD. She quit smoking about 5 years ago and also a diagnosis of nonspecific CHF. The patient denies any nausea or vomiting. PAST MEDICAL AND SURGICAL HISTORY: 1. COPD. 2. CHF. 3. Atrial fibrillation. 4. Atrial fibrillation ablation. 5. Hysterectomy. 6. Appendectomy. MEDICATIONS: Please see medication reconciliation form. ALLERGIES: LATEX. SOCIAL HISTORY: Quit smoking about 5 years ago. FAMILY HISTORY: No heart disease. REVIEW OF SYSTEMS: A 10-point review of systems obtained, nothing else is significant other than what is stated in HPI. PHYSICAL EXAMINATION: VITAL SIGNS: Temperature 98.1, pulse 71, respiratory rate 20, and blood pressure 131/58. GENERAL: In no acute distress. SKIN: No rash. HEENT: Anicteric. Both eyes are clear. LUNGS: Decreased with very faint expiratory wheezes. HEART: Regular rate and rhythm. Normal S1 and S2. GI: Abdomen is soft and nondistended. NEUROLOGIC: Alert and oriented x3. Cranial nerves 2 through 12 grossly intact. MUSCULOSKELETAL: Painless range of motion in joints. PSYCHIATRIC: No hallucination. LABORATORY DATA: White count 10, hemoglobin 13, and platelet count 185. D-dimer was negative. Her creatinine was 0.9. Subsequently, it went up to 1.35. Troponin went from 0.015 to 0.845. Beta-natriuretic peptide is 136. Her COVID-19 is still pending. Chest x-ray was read as cardiomegaly with likely pulmonary edema. ASSESSMENT AND PLAN: 1. Likely dpv-ZT-qtrcvwykh myocardial infarction. Lovenox has been started. We will hold her Eliquis at home. I have discussed this case with Cardiology, most likely she will be on a heart catheterization tomorrow. Continue aspirin, beta-baudilio, and a statin. 2. Acute heart failure with cardiac wheeze. We will get an echocardiogram or diurese with IV Lasix, but monitor creatinine and repeat a chest x-ray in the morning. 3. Chronic obstructive pulmonary disease with mild wheeze, possibly cardiac. We will diurese and monitor. We will hold off on nebulizer treatment given the fact that there is a possible suspicion for COVID. 4. Atrial fibrillation. We will hold Eliquis. Currently, the patient is on rate control. 5. GI and DVT prophylaxis. Eliquis is still in her system. [place] MD MEG Frausto/SHIMON /[id number] cc: [facility]
[2020-05-16] MEDS: SODIUM CHLORIDE 0.9% 1000ML 1,000 ML IV SCH ×2 (01:39→14:20)
[2020-05-16 04:41] LABS: BASOPHILS % 0.2 % (0.0-1.0); EOSINOPHILS # (AUTO) 0.1 (0.0-0.4); EOSINOPHILS % 1.4 % (0.0-6.0); HEMATOCRIT 38.4 % (34.2-44.1); HEMOGLOBIN 12.3 g/dL (12.0-16.0); LYMPHOCYTES # (AUTO) 1.5 (1.0-3.2); LYMPHOCYTES % 16.7 % (18.0-39.1); MEAN CORPUSCULAR HEMOGLOBIN 31.7 pg (28-32); MONOCYTES # (AUTO) 0.9 (0.2-0.8); MONOCYTES % 9.9 % (4.4-11.3); NEUTROPHILS # (AUTO) 6.4 (2.1-6.9); NEUTROPHILS % 71.4 % (38.7-80.0); PLATELET COUNT 124 x10e3/uL (140-360); RED BLOOD COUNT 3.88 x10e6/uL (3.6-5.1); RED CELL DISTRIBUTION WIDTH 12.8 % (11.7-14.4)
[2020-05-16 05:06] LABS: ANION GAP 13.5 mmol/L (8-16); CALCIUM 9.1 mg/dL (8.4-10.2); CREATININE, SERUM 1.26 mg/dL (0.57-1.11); POTASSIUM 4.5 mmol/L (3.5-5.1)
--- NOTE | 2020-05-16 07:00 | NUR ---
RCD PT AT BED PT IS ALERT AND ORIENTED PT RESTING ON BED IV PATENT BY SALINE FLUSH PT NPO FOR PROCEDURE BED LOW AND LOCKED CALL LIGHT IN REACH
--- NOTE | 2020-05-16 07:33 | Diagnostic Imaging Report ---
Examination: Single AP view of the chest. COMPARISON: Portable chest 05/14/2020 INDICATION: Shortness of breath, history of COPD IMPRESSION: 1. Lines and Tubes: None 2. Lungs are well-inflated. Increased lucency in the upper lungs suggestive of COPD changes. No consolidation or effusion. 3. Stable mild enlargement of the cardiac silhouette. Pulmonary vasculature is normal. 4. No acute bony abnormalities. Metallic clips project over the left breast and axillary region. Signed by: Dr. Sekou Tony M.D. on 05/16/2020 7:30 AM
[2020-05-16] MEDS: FUROSEMIDE INJ 10 MG/ML 4 ML VIAL IV SCH ×2 (08:45→17:00)
[2020-05-16] MEDS: LOSARTAN POTASSIUM 25 MG TAB PO SCH ×2 (09:00→14:00)
[2020-05-16] MEDS: METOPROLOL SUCCINATE 50 MG TAB XL PO SCH ×2 (09:00→14:00)
[2020-05-16] MEDS: ATORVASTATIN 40 MG TAB PO SCH ×2 (09:00→14:00)
[2020-05-16] MEDS: ASPIRIN 81 MG CHEW TAB PO SCH ×2 (09:00→14:00)
--- NOTE | 2020-05-16 09:50 | NUR ---
PT WENT TO PROCEDURE IN SAFE CONDITION
[2020-05-16] MEDS ORDERED: LIDOCAINE HCL 2% LOCAL 20 ML VIAL ONE (09:52)
[2020-05-16] MEDS ORDERED: HEPARIN SOD (PORCINE) 1000 UNIT/ML 30ML ONE (09:52)
[2020-05-16] MEDS ORDERED: HEPARIN SOD/SOD CHLORIDE 2,000 ML ONE (09:52)
[2020-05-16] MEDS ORDERED: SODIUM CHLORIDE 0.9% 1000ML 1,000 ML ONE (09:53)
[2020-05-16] MEDS ORDERED: IOPAMIDOL 370 MG/ML 200 ML INFUS..BTL INJ ONE ×2 (09:53→09:57)
[2020-05-16] MEDS ORDERED: NITROGLYCERIN/D5W 200 MCG/ML 250 ML ONE (09:53)
[2020-05-16] MEDS ORDERED: MIDAZOLAM HCL 2 MG/2 ML VIAL ONE (09:56)
[2020-05-16] MEDS ORDERED: FENTANYL CITRATE/PF 100MCG/2 ML INJ ONE (09:57)
[2020-05-16] MEDS ORDERED: FUROSEMIDE INJ 10 MG/ML 4 ML VIAL ONE (10:32)
--- NOTE | 2020-05-16 10:48 | NUR ---
PT BACK AFTER PROCEDURE ,PT IS ALERT AND ORIENTED PT IN RESPIRATORY DISTRESS ,PT IN BIPAP NOW ,NOTIFIED THE FILM WAXER ,VITALS CHECKED NO SIGNS OF BLEEDING ON THE CATHETER SITE RIGHT GROIN
--- NOTE | 2020-05-16 10:50 | NUR ---
NOTIFIED DR GALARZA PATIENT NEED TO TRANSFER ICU OR IMCU BECAUSE PATIENT CANNOT STAY ON FLOOR WITH BIPAP ,HE SAID OK TO TRANSFER THE PT TO ICU OR IMCU
[2020-05-16] MEDS: ONDANSETRON HCL INJ 2MG/ML 2ML 2 MG/ML VIAL IV PRN (11:09)
[2020-05-16] MEDS: MORPHINE SULFATE INJ 4 MG/ML INJ 1ML IV PRN (11:09)
--- NOTE | 2020-05-16 11:10 | NUR ---
PT RESTLESS TRYING TO PULL OUT BIPAP
[2020-05-16] MEDS ORDERED: FUROSEMIDE INJ 10 MG/ML 4 ML VIAL IV SCH (11:15)
[2020-05-16] MEDS ORDERED: FUROSEMIDE INJ 10 MG/ML 4 ML VIAL IV ONE (11:30)
--- NOTE | 2020-05-16 11:34 | NUR ---
DAY 2 OBS. PT FOR HEART CATH TODAY; TROP I 0.546; R/O NSTEMI SENT TO R1.
[2020-05-16] MEDS ORDERED: LEVALBUTEROL HCL SOLN NEBU 0.63 MG/3 ML NEB INH PRN ×3 (12:30→19:30)
[2020-05-16] MEDS ORDERED: METHYLPREDNISOLONE SOD SUCC 125 MG/2ML VIAL IV ONE (13:00)
--- NOTE | 2020-05-16 13:00 | NUR ---
PATIENT FEELS BETTER RESTING ON BED
--- NOTE | 2020-05-16 13:35 | NUR ---
PT FEELS BETTER SHE WENT BATH ROOM O2 SATURATION 99 WITHOUT BIPA ,TURNOFF THE BIPAP NOTIFIED DR ROBLEDO CANCEL THE TRANSFER TO ICU
--- NOTE | 2020-05-16 14:55 | NUR ---
[facility] case account ending in 1648 has been reviewed and completed by PAS Physicians. Service Line: Level of Care (LOC) / Admission Status Review Initial patient type was submitted as: IO - Initial Observation PAS Recommendation: IN CALL TO DAMI COOPER FOR PT. STATES PT IS BACK FROM HEART CATH W BIPAP. STATES PT HAD DIFFICULTY DURING PROCEDURE. CALL TO DR ROBLEDO FOR INPT ORDER.
--- NOTE | 2020-05-16 18:55 | NUR ---
PT RESTING ON BED BED SIDE REPORT GIVEN TO ONCOMING NURSE
--- NOTE | 2020-05-16 19:00 | NUR ---
RECEIVED BEDSIDE SHIFT REPORT. PT IS ALERT AND ORIENTED X3. RESPIRATIONS ARE EVEN AND UNLABORED- ON 7L PER N/C. PT WATCHING TV. TELE ON. RT GROIN DRESSING DRY AND INTACT. RT FA 20G SL-SITE HEALTHY. PT DENIES PAIN. CALL LIGHT WITHIN REACH. BED LOCKED AND IN LOW POSITION.
--- NOTE | 2020-05-16 19:06 | Consultation ---
DATE OF CONSULTATION: Pulmonary consultation Patient of Dr. Good and Dr. Marks. HISTORY OF PRESENT ILLNESS: A charming 75-year-old woman, admitted with substernal chest pain radiating to both arms. She has history of atrial fibrillation. She has had radiofrequency ablation in the past and uses home oxygen. She has history of COPD. Smoked for over 50 years a pack a day, quit five years ago. She uses oxygen only at night. ALLERGIES: SHE IS ALLERGIC TO LATEX. MEDICATIONS: Eliquis, Lasix, Crestor, losartan, and metoprolol. PHYSICAL EXAMINATION: GENERAL: A well-developed white female, in no acute distress, looking older than her stated age. VITAL SIGNS: Temperature 97.8, pulse 112 on admission, respirations 19, and blood pressure 120/65. HEAD: Normocephalic, atraumatic. EYES: Extraocular movements intact. LUNGS: Few basilar rales. HEART: Regular rhythm. ABDOMEN: Nontender. EXTREMITIES: Edematous. IMPRESSION: Cardiomyopathy, etiology unclear. Denies alcohol abuse and drinks two glasses of wine night at supper. History of chronic obstructive pulmonary disease causing obstructive sleep. The patient may require oxygen today. We will check her O2 saturation on ambulation on room air. Continue to optimize bronchodilators. Therapy for congestive heart failure as per Dr. Marks. Thank you for this kind referral. MD ROSANNA Wood/SHIMON /[id number]
[2020-05-16] MEDS: IPRATROPIUM BROMIDE 0.02% 2.5 ML NEB NEB SCH (20:05)
[2020-05-17] VITALS (8 sets, daily range): BP systolic 110–124; BP diastolic 46–66
--- NOTE | 2020-05-17 00:18 | Progress Note ---
DATE: 05/16/2020 SUBJECTIVE: The patient had confusion earlier with respiratory distress after her left heart cath. Currently, the patient is back to her old self. OBJECTIVE: VITAL SIGNS: Afebrile. Vital signs stable. GENERAL: No acute distress. SKIN: No rash. LUNGS: Decreased breath sounds. HEART: Regular rate, rhythm. Normal S1, S2. GI: Abdomen is soft, nondistended. NEUROLOGIC: Alert and oriented x3. PSYCHIATRIC: No depression. LABORATORY DATA: Laboratory harris, creatinine 1.26. Chest x-ray shows some improvement. Her COVID-19 is still pending. ASSESSMENT AND PLAN: 1. Rpn-KX-sllifwwrc myocardial infarction by enzyme. Already discussed with Dr. Benítez. The left heart cath did not show significant disease. The patient is in acute systolic heart failure and we will continue to diurese her. 2. Chronic obstructive pulmonary disease exacerbation. We will consult Pulmonary. One dose of Solu-Medrol was given. The patient was briefly on BiPAP. Her COVID test is still pending. 3. Atrial fibrillation. The patient is currently rate controlled. Plans per Cardiology. 4. Gastrointestinal and deep vein thrombosis prophylaxis. We will hold chemical DVT prophylaxis for now since she was on Eliquis at home and did receive Lovenox yesterday and she just had a left heart cath. MD MEG Willams/SHIMON /[id number]
[2020-05-17] MEDS: IPRATROPIUM BROMIDE 0.02% 2.5 ML NEB NEB SCH (01:02)
--- NOTE | 2020-05-17 02:00 | NUR ---
PT ASK TO SPEAK TO NURSE ABOUT RESP TX. PT DOES NOT WANT TO SEE DR RAMIRES. SHE SEES DR WEI HYDE AT [facility]. MD REFUSED RESP TX. PT C/O OF PAIN X1. PAIN RESOLVE WHEN PT CALM DOWN ABOUT HER
--- NOTE | 2020-05-17 02:02 | Progress Note ---
DATE: 05/16/2020 Cardiology Progress Note SUBJECTIVE: Shortness of breath and dyspnea on exertion. OBJECTIVE: VITAL SIGNS: Temperature 98.2, heart rate 75, blood pressure 134/57, respiratory rate 16, and O2 saturation 100%. BMI 30. GENERAL: In no acute distress. Alert. NECK: JVD distended. CHEST: With rales and decreased breath sounds. CARDIOVASCULAR: Regular rate and rhythm. Normal S1, S2. No S3 or S4. ABDOMEN: Soft. Bowel sounds positive. EXTREMITIES: With 1+ edema. CARDIOVASCULAR MEDICATIONS: Reviewed. Atorvastatin, nitroglycerin, furosemide, hydralazine, losartan, and metoprolol. LABORATORY DATA: Studies reviewed. Creatinine 1.2. White blood cells 9, hemoglobin 12, and platelets 124. ASSESSMENT AND PLAN: A 75-year-old woman, presents with acute on chronic severe systolic heart failure in the setting of nonischemic cardiomyopathy and mild coronary artery disease, status post coronary angiography today with elevated LVEDP, for which IV fluids held and salvage BiPAP initiated. Continue current cardiovascular medications and diuresis. [place] a heart failure optimal therapy. Valentino Benítez MD AFV/MODL /[id number]
--- NOTE | 2020-05-17 02:07 | Operative Report ---
DATE OF PROCEDURE: 05/16/2020 SURGEON: Valentino Benítez MD PROCEDURE INDICATION: 1. Jor-BJ-btyidagzr myocardial infarction. 2. Acute heart failure, systolic. PROCEDURES PERFORMED: 1. Left heart catheterization. 2. Selective coronary angiography. 3. Moderate sedation. PROCEDURE SUMMARY: After consent was obtained, the patient was prepped and draped in a sterile fashion. The right femoral site was locally infiltrated with 2% lidocaine and access was obtained using micropuncture kit. A 6-[place] sheath was placed and a JL4, a JR4, and a pigtail catheters were used for selective engagement of the left main, right coronary artery to cross the aortic valve for hemodynamic measurements. At the end of the procedure, 6-[place] Angio-Seal closure was successfully deployed. These were the following findings. 1. LV pressure was 166/22 with end-diastolic pressure of 40. 2. Aortic pressure is 166/83 with a MAP of 124. 3. Severe global impairment left ventricular systolic function with left ejection fraction of 25% to 29% on an LV-gram. 4. Left main large in caliber with luminal irregularities, mild calcifications, gives a left anterior descending and circumflex. 5. The left anterior descending has luminal irregularities throughout, gives a couple of diagonals and multiple septal perforators of small caliber. 6. The circumflex has 3 obtuse marginals, has luminal irregularities, and gives 3 obtuse marginals. 7. The right coronary artery has luminal irregularities, gives 2 RV marginals and terminal RPDA and RPLV. CONCLUSION: Nonischemic cardiomyopathy, mild CAD, severe systolic heart failure, elevated LVEDP. Recommend diuresis via IV route. Initiate BiPAP Valentino Benítez MD AFV/MODL /[id number] MTDRhonda
[2020-05-17] MEDS: SODIUM CHLORIDE 0.9% 1000ML 1,000 ML IV SCH (03:40)
--- NOTE | 2020-05-17 06:00 | NUR ---
Pt to talk with dr hendrix about her resp doctor - Aayush Terry. No c/ o of chest pain after discuss pulmonary dr and new orders. Pt asking about meds - lasix given bid on day shift.
--- NOTE | 2020-05-17 07:30 | NUR ---
PT UP IN CHAIR ,O2 2.[address] NO SOB NOTED,OMERIESPAIN
[2020-05-17] MEDS: ASPIRIN 81 MG CHEW TAB PO SCH (08:05)
[2020-05-17] MEDS: FUROSEMIDE INJ 10 MG/ML 4 ML VIAL IV SCH ×2 (08:05→16:57)
[2020-05-17] MEDS: ATORVASTATIN 40 MG TAB PO SCH (08:05)
[2020-05-17] MEDS: LOSARTAN POTASSIUM 25 MG TAB PO SCH (08:30)
[2020-05-17] MEDS: METOPROLOL SUCCINATE 50 MG TAB XL PO SCH (09:00)
[2020-05-17] MEDS ORDERED: IPRATROPIUM BROMIDE 0.02% 2.5 ML NEB NEB PRN (10:15)
--- NOTE | 2020-05-17 11:31 | Diagnostic Imaging Report ---
EXAM: CHEST SINGLE (PORTABLE) DATE: 05/17/2020 11:03 AM INDICATION: Chest pain, CHF COMPARISON: 05/16/2020 FINDINGS: The trachea is midline. There are mildly increased bibasilar opacities suggestive of atelectasis. There is blunting of the right costophrenic angle and trace effusion is possible. There is no evidence for large focal consolidation, pneumothorax, or significant volume pleural effusion. The cardiomediastinal silhouette is stable in appearance. Surgical clips noted projecting over the left breast and axilla. No acute osseous abnormality is identified. IMPRESSION: No significant interval change from 05/16/2020. Signed by: Dr. Stanton Damon MD on 05/17/2020 11:28 AM
[2020-05-17 12:12] LABS: ANION GAP 15.5 mmol/L (8-16); CALCIUM 9.4 mg/dL (8.4-10.2); CREATININE, SERUM 1.22 mg/dL (0.57-1.11); MAGNESIUM 1.6 MG/DL (1.3-2.1); POTASSIUM 4.5 mmol/L (3.5-5.1)
--- NOTE | 2020-05-17 16:58 | NUR ---
PT UP IN BED NO DISTRESS NOTED,DENIES PAIN.O2 2.5 L NC
--- NOTE | 2020-05-17 23:39 | Progress Note ---
DATE: 05/17/2020 SUBJECTIVE: Breathing is a little bit better. OBJECTIVE: VITAL SIGNS: Temperature 98.6, pulse 67, respiratory rate 18, blood pressure 114/52. GENERAL: No acute distress. SKIN: No rash. LUNGS: Decreased breath sounds bilaterally. HEART: Regular rate and rhythm. Normal S1, S2. GI: Abdomen is soft, nondistended. NEUROLOGIC: Alert and oriented x3. PSYCHIATRIC: No hallucination. LABORATORY DATA: Creatinine is 1.22. Chest x-ray is unchanged. ASSESSMENT AND PLAN: 1. Pww-HO-[id number] myocardial infarction. We will continue medical therapy per Cardiology. 2. Acute systolic heart failure with nonischemic cardiomyopathy. We will continue IV Lasix to diurese her. We will repeat creatinine, beta-natriuretic peptide, and chest x-ray in the morning. 3. Chronic obstructive pulmonary disease, per Pulmonology. 4. Atrial fibrillation, currently rate controlled. We will consider restarting Xarelto. 5. Coronavirus disease status is still pending. 6. Gastrointestinal and deep vein thrombosis prophylaxis. Again, we will discuss with Cardiology. We will likely start her back on her Eliquis. Yiching MD MEG Frausto/SHIMON /[id number]
[2020-05-18] VITALS (8 sets, daily range): BP systolic 107–121; BP diastolic 44–57
--- NOTE | 2020-05-18 00:39 | Progress Note ---
DATE: 05/17/2020 Cardiology Progress Note SUBJECTIVE: Denies chest pain, shortness of breath improved. OBJECTIVE: VITAL SIGNS: Temperature 98.1, heart rate 67, blood pressure 115/60, O2 saturation 100%, respiratory rate 16. GENERAL: No acute distress. Alert. NECK: No JVD. CHEST: With scattered rales and decreased breath sounds. CARDIOVASCULAR: Regular rate and rhythm. Normal S1, S2. ABDOMEN: Soft. Bowel sounds positive. EXTREMITIES: Trace edema. CARDIOVASCULAR MEDICATIONS: Reviewed. 1. Aspirin. 2. Metoprolol. 3. Statin. 4. Nitroglycerin. 5. Furosemide. 6. Hydralazine. 7. Losartan. STUDIES: Reviewed. Creatinine 1.2, hemoglobin 12, platelets 124. ASSESSMENT AND PLAN: A 75-year-old woman presents with onrcp-xw-[id number] severe systolic heart failure, nonischemic cardiomyopathy, type 2 myocardial infarction, hypertension, dyslipidemia, who is on continued diuretics including cardiovascular medication. Discussed at length with the patient, who agrees to proceed with LifeVest. This has been ordered. Awaiting fitting. Valentino Benítez MD AFV/MODL /[id number]
[2020-05-18 05:04] LABS: BASOPHILS % 0.3 % (0.0-1.0); EOSINOPHILS # (AUTO) 0.2 (0.0-0.4); EOSINOPHILS % 1.5 % (0.0-6.0); HEMATOCRIT 35.4 % (34.2-44.1); HEMOGLOBIN 11.4 g/dL (12.0-16.0); LYMPHOCYTES # (AUTO) 1.9 (1.0-3.2); LYMPHOCYTES % 16.7 % (18.0-39.1); MEAN CORPUSCULAR HGB CONC 32.2 g/dL (31-35); MEAN CORPUSCULAR VOLUME 96.2 fL (81-99); MONOCYTES # (AUTO) 1.1 (0.2-0.8); MONOCYTES % 9.9 % (4.4-11.3); NEUTROPHILS % 71.3 % (38.7-80.0); PLATELET COUNT 171 x10e3/uL (140-360); RED BLOOD COUNT 3.68 x10e6/uL (3.6-5.1); RED CELL DISTRIBUTION WIDTH 12.7 % (11.7-14.4)
[2020-05-18 05:22] LABS: ANION GAP 13.9 mmol/L (8-16); CALCIUM 8.8 mg/dL (8.4-10.2); CREATININE, SERUM 1.1 mg/dL (0.57-1.11); MAGNESIUM 1.7 MG/DL (1.3-2.1); POTASSIUM 3.9 mmol/L (3.5-5.1)
--- NOTE | 2020-05-18 08:27 | Diagnostic Imaging Report ---
EXAMINATION: CHEST SINGLE (PORTABLE) INDICATION: CHF COMPARISON: Multiple prior chest x-ray examinations most recent dated 05/17/2020. FINDINGS: AP view TUBES and LINES: None. LUNGS/PLEURA: Lungs are well inflated. There are bilateral interstitial opacities, consistent with pulmonary edema, slightly increased from prior exam.. There is obscuration of the right costophrenic angles which could be due to effusion and or atelectasis. HEART AND MEDIASTINUM: Cardiac size is mildly enlarged. BONES AND SOFT TISSUES: No acute osseous lesion. Soft tissues are unremarkable. UPPER ABDOMEN: No free air under the diaphragm. IMPRESSION: Slightly worsened pulmonary edema. Unchanged small left pleural effusion. Signed by: Donald Caputo MD on 05/18/2020 8:24 AM
--- NOTE | 2020-05-18 08:50 | Pulmonary Function Test ---
DATE OF STUDY: REFERRING PHYSICIAN: NAME OF STUDY: Spirometry report. The patient of Dr. Good. FINDINGS: Very severe obstructive pulmonary disease. Forced vital capacity 1.33 L, 47% of predicted. FEV1 0.59 L, 28%. FEV1/FVC ratio 44%. FEF of 25 to 75, 15%. There was no significant improvement following inhalation of bronchodilators. Concomitant restriction cannot be excluded. Alvaro Car MD DS/MODL /[id number]
[2020-05-18] MEDS: METOPROLOL SUCCINATE 50 MG TAB XL PO SCH (09:18)
[2020-05-18] MEDS: ATORVASTATIN 40 MG TAB PO SCH (09:18)
[2020-05-18] MEDS: LOSARTAN POTASSIUM 25 MG TAB PO SCH (09:18)
[2020-05-18] MEDS: FUROSEMIDE INJ 10 MG/ML 4 ML VIAL IV SCH ×3 (09:18→22:15)
[2020-05-18] MEDS: ASPIRIN 81 MG CHEW TAB PO SCH (09:18)
[2020-05-18] MEDS: VALSARTAN/SACUBITRIL 24MG/26MG 1 EA TAB PO SCH (16:12)
--- NOTE | 2020-05-18 23:18 | Progress Note ---
DATE: 05/18/2020 SUBJECTIVE: Her breathing is still labored. OBJECTIVE: VITAL SIGNS: Temperature 98.6, pulse 58, respiratory rate 20, blood pressure 118/53. GENERAL: No acute distress. SKIN: No rash. LUNGS: Decreased breath sounds on both sides. HEART: Regular rate and rhythm. Normal S1 and S2. GI: Abdomen is soft, nondistended. NEUROLOGIC: Alert and oriented x3. PSYCHIATRIC: No hallucination. LABORATORY DATA: White count 11, hemoglobin 11, platelet count 171. Creatinine 1.1. Brain natriuretic peptide is 352. Chest x-ray is little worse. ASSESSMENT AND PLAN: 1. Ehi-FB-cxlqzonaa myocardial infarction. We will continue medical therapy per Cardiology. 2. Acute systolic heart failure due to nonischemic cardiomyopathy. We will increase her IV Lasix. Continue to monitor her clinically. 3. Chronic obstructive pulmonary disease per Pulmonology. 4. Atrial fibrillation, currently the rate is controlled. We discussed with Cardiology about restarting Eliquis. 5. Coronavirus disease 2019 status is still pending. 6. Gastrointestinal and deep venous thrombosis prophylaxis. Again, I will discuss with Cardiology on resuming her Eliquis. Betsyching MD MEG Frausto/SHIMON /[id number]
[2020-05-19] VITALS: BP 125/49
--- NOTE | 2020-05-19 00:38 | Progress Note ---
DATE: 05/18/2020 Cardiology Progress Note SUBJECTIVE: Gunjan denies any chest pain. Her shortness of breath is improving. Chest x-ray, still with significant overload, on IV diuretics. Had LifeVest, so primary care sales representative evaluate the patient, however, the patient uncertain about proceeding at this point with LifeVest, which has been advised. OBJECTIVE: VITAL SIGNS: Temperature 98.1, heart rate 58, blood pressure 112/52, respiratory rate 18, O2 saturation 100%. BMI 30. GENERAL: In no acute distress. NECK: No JVD. CHEST: With rales and decreased breath sounds in bilateral bases. CARDIOVASCULAR: Regular rate and rhythm. Normal S1, S2. No S3 or S4. ABDOMEN: Soft. Bowel sounds positive. EXTREMITIES: Trace edema. CARDIOVASCULAR MEDICATIONS: Reviewed. Aspirin 81 mg daily, atorvastatin 40 mg daily, hydralazine 10 mg q.4 hours, losartan 25 mg daily, will be transitioned to Entresto, furosemide 40 mg every 8 hours, metoprolol succinate 25 mg daily. LABORATORY DATA: Studies reviewed. Creatinine 1.1. White blood cells 11, hemoglobin 11, platelets 171. AST 21, ALT 28, alkaline phosphatase 72. ASSESSMENT AND PLAN: A 75-year-old woman presents with acute on chronic severe systolic heart failure, hypertension, history of paroxysmal atrial fibrillation, and dyslipidemia. RECOMMENDATIONS: Transition losartan to Entresto. Continue rest of cardiovascular medications. Once euvolemic, transition to p.o. diuretics. Advised on LifeVest, however, at this point, the patient deciding whether or not to proceed. We will reassess tomorrow. Valentino Benítez MD AFV/MODL /[id number]
[2020-05-19] MEDS: VALSARTAN/SACUBITRIL 24MG/26MG 1 EA TAB PO SCH (03:45)
[2020-05-19 04:00] VITALS: BP 116/50
[2020-05-19 05:57] LABS: BASOPHILS % 0.5 % (0.0-1.0); EOSINOPHILS # (AUTO) 0.2 (0.0-0.4); HEMATOCRIT 34.5 % (34.2-44.1); LYMPHOCYTES # (AUTO) 1.5 (1.0-3.2); LYMPHOCYTES % 22.7 % (18.0-39.1); MEAN CORPUSCULAR HEMOGLOBIN 35.7 pg (28-32); MEAN CORPUSCULAR HGB CONC 34.8 g/dL (31-35); MEAN CORPUSCULAR VOLUME 102.7 fL (81-99); MONOCYTES # (AUTO) 0.8 (0.2-0.8); MONOCYTES % 12.3 % (4.4-11.3); NEUTROPHILS # (AUTO) 3.9 (2.1-6.9); NEUTROPHILS % 61.3 % (38.7-80.0); PLATELET COUNT 118 x10e3/uL (140-360); RED BLOOD COUNT 3.36 x10e6/uL (3.6-5.1); RED CELL DISTRIBUTION WIDTH 13.6 % (11.7-14.4)
[2020-05-19] MEDS: FUROSEMIDE INJ 10 MG/ML 4 ML VIAL IV SCH (06:07)
[2020-05-19 06:34] LABS: ANION GAP 13.7 mmol/L (8-16); CALCIUM 8.8 mg/dL (8.4-10.2); CREATININE, SERUM 1.15 mg/dL (0.57-1.11); MAGNESIUM 1.6 MG/DL (1.3-2.1); POTASSIUM 3.7 mmol/L (3.5-5.1)
--- NOTE | 2020-05-19 07:06 | Diagnostic Imaging Report ---
Examination: Single AP view of the chest. COMPARISON: AP chest 05/18/2020 INDICATION: Chest pain, CHF IMPRESSION: 1. Lines and Tubes: None 2. Lungs are well-inflated. Interval improvement in bilateral interstitial opacities consistent with edema. No consolidation. No pleural effusion is noted. 3. Stable mild enlargement of the cardiac silhouette. Improved central pulmonary venous congestion. 4. No acute bony abnormalities. Signed by: Dr. Sekou Tony M.D. on 05/19/2020 7:02 AM
[2020-05-19 08:00] VITALS: BP_SYST 114; BP_SYST 118; BP_DIAS 45; BP_DIAS 47
[2020-05-19] MEDS: ATORVASTATIN 40 MG TAB PO SCH (08:24)
[2020-05-19] MEDS: METOPROLOL SUCCINATE 50 MG TAB XL PO SCH (08:24)
[2020-05-19] MEDS: ASPIRIN 81 MG CHEW TAB PO SCH (08:24)
[2020-05-19 08:25] LABS: PLATELET ESTIMATE SLIGHTLY DECREASED; PLATELET MORPHOLOGY COMMENT RARE EDTA CLUMPING; RBC MORPHOLOGY COMMENT NORMAL
[2020-05-19 11:55] VITALS: BP 116/46
--- NOTE | 2020-05-19 12:25 | NUR ---
Patient received a discharge order from Dr. Good after director payment and bar turner saw and cleared patient. She will follow up with her PCP and Dr. Marks to finalize getting a LifeVest. Patient has a new prescription from Dr. Good that she was given and explained to her. Patient verbalized understanding on everything and had no questions. Patient's IV was removed and covered with a C/D/I dressing at 1220. Patient awaiting ride from her . Will continue monitoring. Addendum: 05/19/20 at 1256 by Sofia Rose RN Patient wheeled to car at 1250. No issues or complaints.
[2020-05-19] MEDS ORDERED: APIXABAN 5 MG TABLET PO SCH (17:00)
--- NOTE | 2020-05-20 13:04 | Discharge Summary ---
PRIMARY CARE DOCTOR: Dr. Johnny Sanchez. FINAL DIAGNOSIS: Acute systolic heart failure, resolved. SECONDARY DIAGNOSES: 1. Type 2 myocardial infarction. 2. Chronic obstructive pulmonary disease. 3. Atrial fibrillation. 4. Chronic respiratory failure, on home oxygen. CONSULTANTS: 1. Dr. Valentino Marks, Cardiology. 2. Soil Scientist, Dr. Car. PROCEDURES/STUDIES PERFORMED: Left heart catheterization. HISTORY: Per [facility] and P. HOSPITAL COURSE: The patient was admitted. She was taken to the clinical laboratory assistant due to a bump in her troponin, which shows nonobstructive coronary artery disease. However, the patient was in acute systolic CHF. The patient was aggressively diuresed with IV Lasix. She is much better now. The patient will go home on Entresto, also to increase her Lasix to b.i.d. The patient will follow up with her primary care doctor in 1 week. She will also follow up with director of professional services. The patient was seen and examined today. It took 32 minutes total to discharge this patient today. CONDITION ON DISCHARGE: Improved. DISCHARGE MEDICATIONS: Please see medication reconciliation form. Yiching MD MEG Frausto/SHIMON /[id number] cc: [facility]
== END 2020-05-19 12:50 | disposition home or self-care (01) | DRG 280 ==
LOC: ER 19:00 → ERHOLD 21:02 → MED/SURG 23:47 → OBSVTOIN 05-16 15:04
PROVIDERS: ADMIT Internal Medicine; ATTEND Internal Medicine
PROC: 4A023N7 Measurement of Cardiac Sampling and Pressure, Left Heart, Percutaneous Approach (ICD-10-PCS; principal; 2020-05-16)
PROC: B2111ZZ Fluoroscopy of Multiple Coronary Arteries using Low Osmolar Contrast (ICD-10-PCS; 2020-05-16)
PROC: B2151ZZ Fluoroscopy of Left Heart using Low Osmolar Contrast (ICD-10-PCS; 2020-05-16)
DX: I21.A1 Myocardial infarction type 2 (principal); I50.23 Acute on chronic systolic (congestive) heart failure; J96.10 Chronic respiratory failure, unspecified whether with hypoxia or hypercapnia; J44.1 Chronic obstructive pulmonary disease with (acute) exacerbation; I42.8 Other cardiomyopathies; I11.0 Hypertensive heart disease with heart failure; Z11.59 Encounter for screening for other viral diseases; Z99.81 Dependence on supplemental oxygen; Z79.01 Long term (current) use of anticoagulants; I25.10 Atherosclerotic heart disease of native coronary artery without angina pectoris; Z91.040 Latex allergy status; Z87.891 Personal history of nicotine dependence; G47.33 Obstructive sleep apnea (adult) (pediatric); I48.0 Paroxysmal atrial fibrillation; E78.5 Hyperlipidemia, unspecified
CPT/HCPCS: 36415; 71045; 80048; 80053; 82550; 82553; 83735; 83880; 84484; 85025; 85379; 93005; 93306; 93458; 94640; 94660; 99152; 99284; C1769; G0378; J1644; J1940; J2001; J2250; J2270; J2405; J2930; J3010; J7030; Q9967; U0002